=== PATIENT | female | born 1940 | race Caucasian/White ===

== ENCOUNTER 2019-10-12 08:17 | Day surgery (SDC) | payer MEDICARE, OTHER ==
[2019-10-11 12:44] LABS: Urine WBC None Seen /hpf (0 - 5)
[2019-10-11 12:48] LABS: Basophils # (auto) 0 10 ^3/uL (0-0.2); Eosinophils # (auto) 0.1 10 ^3/uL (0-0.8); Mean Corpuscular Hgb Conc. 33.8 g/dL (32.0-36.0); Monocytes # (auto) 0.4 10 ^3/uL (0-1.3)
[2019-10-11 12:49] LABS: Basophils % (auto) 0.5 % (0.0-2.0); Eosinophils % (auto) 1.5 % (0.0-7.0); Hematocrit 42.9 % (36.0-46.0); Hemoglobin 14.5 g/dL (12.2-16.2); Lymphocytes # (auto) 1.3 10 ^3/uL (0.4-5.4); Lymphocytes % (auto) 21.4 % (10.0-50.0); Mean Corpuscular Hemoglobin 34.2 pg (28.0-32.0); Monocytes % (auto) 5.9 % (0.0-12.0); Neutrophils # (auto) 4.4 10 ^3/uL (1.6-8.6); Neutrophils % (auto) 70.7 % (37.0-80.0); Platelet Count (auto) 182 10^3/uL (140-450); Red Blood Cells 4.25 10^6/uL (4.0-5.20); Red Cell Distribution Width 13.2 % (11.8-14.3); White Blood Cell 6.3 10^3/uL (4.4-10.8)
[2019-10-11 12:51] LABS: Urine Bacteria NONE SEEN /hpf (None Seen); Urine Blood Negative /uL (Negative); Urine Mucus FEW (None Seen); Urine Specific Gravity 1.012 (1.001-1.035)
[2019-10-11 13:05] LABS: INR 1.15 (0.9-1.15); Partial Thromboplastin Time 31.6 sec (23.64-32.05)
[2019-10-11 13:12] LABS: Albumin 3.4 g/dL (3.4-5.0); BUN/Creatinine Ratio 23.3; Calcium 8.4 mg/dL (8.5-10.1)
[2019-10-11 13:14] LABS: Bilirubin, Total 0.6 mg/dL (0.2-1.0); Total Protein 6.6 g/dL (6.4-8.2)
[~2019-10-12] VITALS: Ht 165.1 cm; Wt 77.1 kg
[~2019-10-12 08:17] MED LIST: ACET650T79 PO; APIX5TAB OR; CARV3.1240 PO; CHOL3000 PO; DRON400T PO; LANS15CA25 PO; LOSA25TA38 PO
[2019-10-12] MEDS ORDERED: ceFAZolin 1GM/50ML 50 ML IV ONE (08:59)
[2019-10-12] MEDS ORDERED: MIDAZOLAM HCL 1MG/1ML-2 ML VIAL IV PRN (10:15)
[2019-10-12] MEDS ORDERED: ePHEDrine SULFATE 50 MG/ML AMP IV PRN (10:15)
[2019-10-12] MEDS ORDERED: MORPHINE SULFATE 4 MG/ML SYR/VIAL IV PRN (10:15)
[2019-10-12] MEDS ORDERED: LABETALOL HCL 5 MG/ML 4ML SYRINGE IV PRN (10:15)
[2019-10-12] MEDS ORDERED: ONDANSETRON HCL 4 MG/2 ML VIAL IV PRN (10:15)
[2019-10-12] MEDS ORDERED: HYDROmorphone HCL 2 MG/ML VL IV PRN (10:15)
[2019-10-12] MEDS ORDERED: MIDAZOLAM HCL 1MG/1ML-2 ML VIAL ONE (10:40)
[2019-10-12] MEDS ORDERED: MEPERIDINE HCL (25 MG/ML) 1ML VIAL ONE (10:40)
[2019-10-12] MEDS ORDERED: fentaNYL CITRATE 100 MCG/2 ML VL ONE (10:40)
[2019-10-12 11:38] VITALS: BP 156/64
[2019-10-12] MEDS ORDERED: PROPOFOL 10 MG/ML 20 ML IV ONE (12:18)
[2019-10-12] MEDS ORDERED: DexAMETHasone SOD PHOS 10MG/1ML VIAL INJ ONE (12:18)
== END 2019-10-12 11:55 | disposition home or self-care (01) ==
LOC: SUR 08:17
PROVIDERS: ATTEND Podiatrist Foot & Ankle Surgery
DX: M79.671 Pain in right foot (principal); M25.774 Osteophyte, right foot; M20.41 Other hammer toe(s) (acquired), right foot; I48.91 Unspecified atrial fibrillation; I49.9 Cardiac arrhythmia, unspecified; I10 Essential (primary) hypertension; Z79.899 Other long term (current) drug therapy; Z91.040 Latex allergy status; Z88.2 Allergy status to sulfonamides; Z86.73 Personal history of transient ischemic attack (TIA), and cerebral infarction without residual deficits
CPT/HCPCS: 28285; 36415; 80053; 81001; 85025; 85610; 85730; 88304; 88305; 88311; J0690; J1100; J2175; J2250; J2704; J3010